=== PATIENT | male | born 1965 | race Two or more races ===

== ENCOUNTER 2018-09-10 09:29 | Emergency (ER) | payer SELFPAY ==
[~2018-09-10] VITALS: Ht 162.6 cm; Wt 76.7 kg
[2018-09-10 09:34] VITALS: BP 167/90
[2018-09-10] MEDS ORDERED: IBUPROFEN 800 MG TABLET ONE (09:56)
[2018-09-10] MEDS ORDERED: IBUPROFEN 200 MG TABLET PO ONE (10:00)
== END 2018-09-10 10:18 | disposition home or self-care (01) ==
LOC: ED 10:10
DX: K02.9 Dental caries, unspecified (principal)
CPT/HCPCS: 99283

== ENCOUNTER 2019-03-26 15:53 | Emergency (ER) | payer SELFPAY ==
[~2019-03-26] VITALS: Ht 157.5 cm; Wt 75.3 kg
[2019-03-26 15:55] VITALS: BP 138/90
--- NOTE | 2019-03-26 16:17 | NUR ---
Pt transported in wheelchair to x-ray. Pt not in room at this time.
[2019-03-26] MEDS ORDERED: HYDROmorphone 2 MG/ML, 1ML ONE (16:35)
[2019-03-26] MEDS ORDERED: ONDANSETRON ODT 4 MG ONE (16:35)
[2019-03-26] MEDS ORDERED: ONDANSETRON ODT 4 MG PO ONE (17:00)
[2019-03-26] MEDS ORDERED: HYDROmorphone 1 MG/ML, 1ML INJ IM ONE (17:00)
[2019-03-26] MEDS ORDERED: HYDROmorphone 1 MG/ML, 1ML VIAL IM ONE (17:00)
--- NOTE | 2019-03-26 18:27 | NUR ---
Patient given discharge instructions and they have confirmed that they understand the instructions. Patient ambulatory with steady gait. Pt left with prescription, d/c paperwork, and all personal belongings.
== END 2019-03-26 18:37 | disposition home or self-care (01) ==
LOC: ED 18:22
DX: S52.571A Other intraarticular fracture of lower end of right radius, initial encounter for closed fracture (principal); K21.9 Gastro-esophageal reflux disease without esophagitis; W01.0XXA Fall on same level from slipping, tripping and stumbling without subsequent striking against object, initial encounter; Y93.89 Activity, other specified; Y92.69 Other specified industrial and construction area as the place of occurrence of the external cause; Y99.8 Other external cause status
CPT/HCPCS: 73090; 73110; 73200; 96372; 99284; J1170; Q0162

== ENCOUNTER 2019-03-28 11:15 | Emergency (ER) | payer SELFPAY | END 2019-03-28 11:48 | disposition left against medical advice (07) | LOC: ED 11:42 | DX: M79.601 Pain in right arm (principal); Z53.21 Procedure and treatment not carried out due to patient leaving prior to being seen by health care provider ==

== ENCOUNTER 2019-04-03 06:33 | Emergency (ER) | payer SELFPAY ==
[~2019-04-03] VITALS: Ht 165.1 cm; Wt 77.4 kg
[2019-04-03] MEDS ORDERED: LORazepam 2 MG/ML, 1ML ONE (06:46)
[2019-04-03] MEDS ORDERED: SULFAMETH./TRIMETHOPRIM DS 800MG/160MG TABLET ONE (07:17)
[2019-04-03] MEDS ORDERED: CEFAZOLIN 1,000 MG ONE (07:18)
[2019-04-03] MEDS ORDERED: HYDROmorphone 1 MG/ML, 1ML VIAL ONE (07:18)
[2019-04-03] MEDS ORDERED: SULFAMETH./TRIMETHOPRIM DS 800MG/160MG TABLET PO ONE (07:30)
[2019-04-03] MEDS ORDERED: CEFAZOLIN 1,000 MG IM ONE (07:30)
[2019-04-03] MEDS ORDERED: HYDROmorphone 1 MG/ML, 1ML INJ IM ONE (07:30)
--- NOTE | 2019-04-03 08:19 | NUR ---
PA USING VIDEO VOCAL MUSIC INSTRUCTOR TO TALK WITH PATIENT. SPLINT REMOVED FROM RIGHT WRIST.
[2019-04-03 09:36] VITALS: BP 142/86
[2019-04-03] MEDS ORDERED: BACITRACIN ZINC OINT 500U/GM, 0.9 GM ONE (10:03)
== END 2019-04-03 09:39 | disposition home or self-care (01) ==
LOC: ED 07:13
DX: G89.11 Acute pain due to trauma (principal); M96.89 Other intraoperative and postprocedural complications and disorders of the musculoskeletal system; M25.531 Pain in right wrist; K21.9 Gastro-esophageal reflux disease without esophagitis; W19.XXXA Unspecified fall, initial encounter; Y93.89 Activity, other specified; Y92.69 Other specified industrial and construction area as the place of occurrence of the external cause; Y99.8 Other external cause status
CPT/HCPCS: 29125; 73110; 96372; 99283; J0690; J1170

== ENCOUNTER 2019-04-10 02:19 | Emergency (ER) | payer OTHER ==
[~2019-04-10] VITALS: Ht 167.6 cm; Wt 72.6 kg
[2019-04-10 02:21] VITALS: BP 154/93
[2019-04-10] MEDS ORDERED: NORCO (02:25)
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
[2019-04-10] MEDS ORDERED: OXYcodone/APAP 5/325MG TABLET ONE (02:44)
--- NOTE | 2019-04-10 02:47 | NUR ---
PT MEDICATED PER EMAR FOR PAIN. PT TOLERATED WELL.
[2019-04-10] MEDS ORDERED: OXYcodone/APAP 5/325MG TABLET PO ONE (03:00)
--- NOTE | 2019-04-10 03:14 | NUR ---
EMT APPLIED SPLINT. PT TOLERATED WELL.
--- NOTE | 2019-04-10 03:56 | NUR ---
PT GIVEN DC INSTRUCTIONS AND SCRIPTS. PT EDUCATED REGARDING DC MEDICATIONS. PT AMB TO DC WITH STEADY GAIT. NO ACUTE DISTRESS AT DC.
== END 2019-04-10 03:57 | disposition home or self-care (01) ==
LOC: ED 03:07
DX: S52.571A Other intraarticular fracture of lower end of right radius, initial encounter for closed fracture (principal); G89.18 Other acute postprocedural pain; X58.XXXA Exposure to other specified factors, initial encounter; Y93.89 Activity, other specified; Y92.89 Other specified places as the place of occurrence of the external cause; Y99.8 Other external cause status
CPT/HCPCS: 29125; 99283

== ENCOUNTER 2020-01-04 14:54 | Emergency (ER) | payer SELFPAY ==
[~2020-01-04] VITALS: Ht 162.6 cm; Wt 74.6 kg
[~2020-01-04 14:54] MED LIST: NORCO
[2020-01-04] MEDS ORDERED: KETOROLAC 30 MG/1 ML ONE (15:20)
[2020-01-04] MEDS ORDERED: ONDANSETRON ODT 4 MG ONE (15:20)
[2020-01-04] MEDS ORDERED: KETOROLAC 30 MG/1 ML IM ONE (15:30)
[2020-01-04] MEDS ORDERED: ONDANSETRON ODT 4 MG PO ONE (15:30)
[2020-01-04 15:32] LABS: BASOPHILS # (AUTO) 0.04 x10^3/uL (0-0.1); BASOPHILS % (AUTO) 1 % (0-1); EOSINOPHILS # (AUTO) 0.01 x10^3/uL (0-0.4); EOSINOPHILS % (AUTO) 0 % (1-7); LYMPHOCYTES # (AUTO) 1.62 x10^3/uL (1-3.4); LYMPHOCYTES % (AUTO) 21 % (22-44); MD NO; MEAN CORPUSCULAR HEMOGLOBIN 30.6 pg (27.5-34.5); MEAN CORPUSCULAR HGB CONC 33.7 g/dL (33.2-36.2); MONOCYTES # (AUTO) 0.22 x10^3/uL (0.2-0.8); MONOCYTES % (AUTO) 3 % (2-9); NEUTROPHILS # (AUTO) 5.97 x10^3/uL (1.8-6.8); NEUTROPHILS % (AUTO) 76 % (42-75); PLATELET COUNT 423 x10^3/uL (130-400); RED CELL DISTRIBUTION WIDTH 13.8 % (9.4-14.8)
[2020-01-04 15:42] LABS: ALANINE AMINOTRANSFERASE 20 U/L (12-78); ALBUMIN 3.8 g/dL (3.4-5.0); ANION GAP 6 mmol/L (5-15); CALCIUM 8.8 mg/dL (8.5-10.1); CHLORIDE 108 mmol/L (98-107); CREATININE 0.78 mg/dL (0.7-1.3)
--- NOTE | 2020-01-04 15:44 | NUR ---
PT BACK FROM XR, TO US AT THIS TIME. URINE CUP PROVIDED.
[2020-01-04 15:45] LABS: ALKALINE PHOSPHATASE 110 U/L (45-117); BILIRUBIN,TOTAL 0.3 mg/dL (0.2-1.0); TOTAL PROTEIN 7.9 g/dL (6.4-8.2)
[2020-01-04 16:38] LABS: CULTURE INDICATED? NO; MICROSCOPIC NOT IND
--- NOTE | 2020-01-04 17:04 | NUR ---
PT BACK FROM CT. PT STATES PAIN MUCH BETTER, RATED 5/10-DECREASED FROM 10/10 PREVIOUS TO MEDICATION. CALL LIGHT WITHIN REACH.
[2020-01-04 17:54] VITALS: BP 132/81
== END 2020-01-04 17:56 | disposition home or self-care (01) ==
LOC: ED 17:30
DX: M51.36 Other intervertebral disc degeneration, lumbar region (principal); K21.9 Gastro-esophageal reflux disease without esophagitis
CPT/HCPCS: 36415; 72110; 74176; 76870; 80053; 81003; 85025; 96372; 99285; J1885; Q0162

== ENCOUNTER 2020-04-29 14:50 | Emergency (ER) | payer SELFPAY ==
[~2020-04-29] VITALS: Ht 162.6 cm; Wt 79.0 kg
[2020-04-29 14:52] VITALS: BP 157/97
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
[2020-04-29] MEDS ORDERED: OXYcodone/APAP 5/325MG TABLET ONE (16:58)
[2020-04-29] MEDS ORDERED: OXYcodone/APAP 5/325MG TABLET PO ONE (17:00)
== END 2020-04-29 17:08 | disposition home or self-care (01) ==
LOC: ED 15:12
DX: S02.2XXA Fracture of nasal bones, initial encounter for closed fracture (principal); K21.9 Gastro-esophageal reflux disease without esophagitis; F17.200 Nicotine dependence, unspecified, uncomplicated; Y04.8XXA Assault by other bodily force, initial encounter; Y93.89 Activity, other specified; Y92.410 Unspecified street and highway as the place of occurrence of the external cause; Y99.8 Other external cause status
CPT/HCPCS: 70486; 99284